=== PATIENT | male | born 1935 | race African-American/Black ===

== ENCOUNTER 2017-09-17 20:56 | Emergency (ER) | payer MEDICARE, OTHER ==
[~2017-09-17] VITALS: Ht 172.7 cm; Wt 74.5 kg
[~2017-09-17 20:56] MED LIST: BRIM15DR2 EACHEYE; CHOL400T15 MT; DILT240T12 PO; DORZ10DR7 EACHEYE; ESCI10TA54 PO; FURO20TA4 PO; LATA2.5D2 EACHEYE; LEVO75TA7 PO; LOVA40TA73 PO; MEMA28CA PO; METO25TA6 PO; PROAIR; TIMO15DR12 EACHEYE
[2017-09-18 00:24] LABS: BASOPHILS % 1.7 % (0.0-2.0); EOSINOPHILS % 2.1 % (0.0-5.0); HEMATOCRIT. 35.7 % (42.0-52.0); HEMOGLOBIN. 10.9 g/dL (14.0-18.0); MEAN CORPUSCULAR HEMOGLOBIN 18.4 pg (28.0-32.0); MEAN CORPUSCULAR VOLUME 60.2 fL (80.0-94.0); MEAN PLATELET VOLUME 9.1 fl (7.4-10.4); MONOCYTES % 12.5 % (2.0-8.0); NEUTROPHILS % 58.7 % (40.0-76.0); PLATELET 185 x1000/uL (130-400); RED BLOOD CELL COUNT 5.93 mill/uL (4.7-6.1); RED CELL DISTRIBUTION WIDTH 20.4 % (11.6-14.6)
[2017-09-18 00:30] LABS: CHLORIDE 106 mEq/L (98-107)
[2017-09-18 00:33] LABS: INR 2.3; PROTHROMBIN TIME 24.3 sec (9.4-11.6)
[2017-09-18 01:56] VITALS: BP 127/74
== END 2017-09-18 01:57 | disposition home or self-care (01) ==
LOC: ER 20:56
DX: R04.0 Epistaxis (principal); T45.515A Adverse effect of anticoagulants, initial encounter; I48.91 Unspecified atrial fibrillation; I11.0 Hypertensive heart disease with heart failure; I50.9 Heart failure, unspecified; H40.9 Unspecified glaucoma; J44.9 Chronic obstructive pulmonary disease, unspecified; Z88.0 Allergy status to penicillin; Z79.01 Long term (current) use of anticoagulants
CPT/HCPCS: 36415; 80048; 85025; 85610; 86850; 86900; 99284

== ENCOUNTER 2018-02-05 10:43 | Emergency (ER) | payer MEDICARE ==
[~2018-02-05] VITALS: Ht 172.7 cm; Wt 88.0 kg
[~2018-02-05 10:43] MED LIST changes: -DORZ10DR7 EACHEYE; +DORZ10DR8 EACHEYE
[2018-02-05 11:37] LABS: EOSINOPHILS % 4.1 % (0.0-5.0); HEMATOCRIT. 37.5 % (42.0-52.0); HEMOGLOBIN. 11.4 g/dL (14.0-18.0); LYMPHOCYTES % 17.7 % (20.0-50.0); MEAN CORPUSCULAR HEMOGLOBIN 19.1 pg (28.0-32.0); MEAN CORPUSCULAR VOLUME 62.7 fL (80.0-94.0); MEAN PLATELET VOLUME 8.9 fl (7.4-10.4); MONOCYTES % 8.5 % (2.0-8.0); NEUTROPHILS % 68.7 % (40.0-76.0); PLATELET 158 x1000/uL (130-400); RED BLOOD CELL COUNT 5.98 mill/uL (4.7-6.1); RED CELL DISTRIBUTION WIDTH 24.5 % (11.6-14.6)
[2018-02-05 11:44] LABS: CHLORIDE 105 mEq/L (98-107)
[2018-02-05 12:28] LABS: PLATELET ESTIMATE NORMAL
[2018-02-05 12:39] LABS: INR 1.2; PARTIAL THROMBOPLASTIN TIME 29.2 sec (23.4-31.0); PROTHROMBIN TIME 12.4 sec (9.4-11.6)
[2018-02-05] MEDS ORDERED: FUROSEMIDE 20MG/2ML VIAL IVP ONE (12:45)
[2018-02-05 13:20] LABS: CLARITY URINE CLEAR (CLEAR); COLOR URINE YELLOW (YELLOW); KETONES URINE NEGATIVE (NEGATIVE); LEUKOCYTE ESTERASE URINE NEGATIVE (NEGATIVE); NITRITE URINE NEGATIVE (NEGATIVE); OCCULT BLOOD URINE NEGATIVE (NEGATIVE); PROTEIN URINE NEGATIVE (NEGATIVE); SPECIFIC GRAVITY URINE 1.005 (1.005-1.030); UROBILINOGEN URINE 0.2 E.U./dL (0.2-1.0)
[2018-02-05 15:00] VITALS: BP 135/90
== END 2018-02-05 15:37 | disposition home or self-care (01) ==
LOC: ER 11:00 → CANBEDREQ 21:58
DX: R09.89 Other specified symptoms and signs involving the circulatory and respiratory systems (principal); I11.0 Hypertensive heart disease with heart failure; I50.9 Heart failure, unspecified; J44.9 Chronic obstructive pulmonary disease, unspecified; H40.9 Unspecified glaucoma; Z88.0 Allergy status to penicillin; Z88.8 Allergy status to other drugs, medicaments and biological substances
CPT/HCPCS: 36415; 71045; 80053; 81003; 83690; 83880; 84484; 85025; 85610; 85730; 93005; 99285

== ENCOUNTER 2018-07-22 22:58 | Inpatient (IN) | payer BC, MEDICARE, OTHER ==
[~2018-07-22] VITALS: Ht 170.2 cm; Wt 74.8 kg
[2018-07-23] MEDS ORDERED: ASPIRIN 81MG TABLET PO ONE (01:45)
[2018-07-23] MEDS ORDERED: NITROGLYCERIN OINT 1GM/INCH UDPKT TD ONE (01:45)
[2018-07-23] MEDS ORDERED: FUROSEMIDE 40MG/4ML VIAL IV ONE (01:45)
[2018-07-23 02:11] LABS: CHLORIDE 104 mEq/L (98-107)
[2018-07-23 02:13] LABS: BASOPHILS % 0.4 % (0.0-2.0); EOSINOPHILS % 0.4 % (0.0-5.0); HEMATOCRIT. 40.8 % (42.0-52.0); HEMOGLOBIN. 12.8 g/dL (14.0-18.0); LYMPHOCYTES % 5.7 % (20.0-50.0); MEAN CORPUSCULAR HEMOGLOBIN 21.8 pg (28.0-32.0); MEAN CORPUSCULAR VOLUME 69.8 fL (80.0-94.0); MEAN PLATELET VOLUME 9.2 fl (7.4-10.4); MONOCYTES % 6.6 % (2.0-8.0); NEUTROPHILS % 86.9 % (40.0-76.0); PLATELET 160 x1000/uL (130-400); RED BLOOD CELL COUNT 5.85 mill/uL (4.7-6.1); RED CELL DISTRIBUTION WIDTH 19.1 % (11.6-14.6)
[2018-07-23 02:17] LABS: INR 2.9; PROTHROMBIN TIME 28.8 sec (9.1-11.1)
[2018-07-23 02:33] LABS: PLATELET ESTIMATE NORMAL
[2018-07-23] MEDS ORDERED: ONDANSETRON HCL 4MG/2ML INJ IV PRN (11:15)
[2018-07-23] MEDS ORDERED: CLONIDINE 0.1MG TABLET PO PRN (11:15)
[2018-07-23] MEDS ORDERED: MAGNESIUM/ALUMINUM HYDROXIDE/SIMETHICONE 30ML UDC PO PRN (11:15)
[2018-07-23] MEDS ORDERED: ACETAMINOPHEN 325MG TABLET PO PRN (11:15)
[2018-07-23] MEDS ORDERED: DILTIAZEM HCL 60MG TABLET PO SCH (12:00)
[2018-07-23 12:50] LABS: T4 FREE 1.12 ng/dL (0.76-1.46)
[2018-07-23 19:45] VITALS: BP 126/83
[2018-07-23 20:49] VITALS: BP 126/83
[2018-07-23] MEDS: METOPROLOL TARTRATE 25MG TABLET PO SCH ×2 (21:00→21:45)
[2018-07-23] MEDS ORDERED: MEMANTINE HCL 5MG TABLET PO SCH (21:00)
[2018-07-23] MEDS: MEMANTINE HCL 5MG TABLET PO SCH (21:44)
[2018-07-23] MEDS: SODIUM CHLORIDE 0.9% INJ 3ML FLUSH IVF SCH (21:45)
[2018-07-23] MEDS: FUROSEMIDE 40MG/4ML VIAL IVP SCH (21:45)
[2018-07-23] MEDS: DORZOLAM/TIMOLOL 2.23/0.68% OPHTH DROPS 10ML BOTHEYE SCH (21:49)
[2018-07-23] MEDS: LATANOPROST 0.005% OPHTH DROPS 2.5ML BOTHEYE SCH (22:19)
[2018-07-23] MEDS: BRIMONIDINE 0.2% OPHTH DROPS 5ML BOTHEYE SCH (22:20)
[2018-07-24] VITALS: BP 108/66
[2018-07-24 04:00] VITALS: BP 122/76
[2018-07-24] MEDS: BRIMONIDINE 0.2% OPHTH DROPS 5ML BOTHEYE SCH ×3 (06:12→21:01)
[2018-07-24] MEDS: SODIUM CHLORIDE 0.9% INJ 3ML FLUSH IVF SCH ×3 (06:12→21:04)
[2018-07-24 06:17] LABS: INR 2.6; PROTHROMBIN TIME 25.5 sec (9.1-11.1)
[2018-07-24] MEDS: LEVOTHYROXINE SODIUM 75MCG TABLET PO SCH (06:29)
[2018-07-24 08:32] VITALS: BP 105/48
[2018-07-24] MEDS ORDERED: FUROSEMIDE 40MG/4ML VIAL IVP SCH (09:00)
[2018-07-24] MEDS: METOPROLOL TARTRATE 25MG TABLET PO SCH ×2 (09:00→21:00)
[2018-07-24] MEDS: BUDESONIDE 0.5MG/2ML NEB HHN SCH ×2 (09:30→21:43)
[2018-07-24] MEDS: IPRATROPIUM/ALBUTEROL 0.5-3(2.5)MG/3ML NEB INH PRN ×2 (09:31→21:44)
[2018-07-24] MEDS: DORZOLAM/TIMOLOL 2.23/0.68% OPHTH DROPS 10ML BOTHEYE SCH ×2 (10:46→21:00)
[2018-07-24] MEDS: MEMANTINE HCL 5MG TABLET PO SCH ×2 (10:52→21:00)
[2018-07-24] MEDS: FUROSEMIDE 40MG/4ML VIAL IVP SCH (10:53)
[2018-07-24] MEDS: CHOLECALCIFEROL (VIT D3) 400 UNIT TABLET PO SCH (10:54)
[2018-07-24 11:51] LABS: CHLORIDE 104 mEq/L (98-107)
[2018-07-24 12:33] VITALS: BP 125/76
[2018-07-24 16:30] VITALS: BP 101/71
[2018-07-24] MEDS ORDERED: WARFARIN SODIUM 2.5MG TABLET PO NR (18:00)
[2018-07-24 20:00] VITALS: BP 94/58
[2018-07-24] MEDS: LATANOPROST 0.005% OPHTH DROPS 2.5ML BOTHEYE SCH (21:01)
[2018-07-25] VITALS: BP 99/60
[2018-07-25] MEDS: IPRATROPIUM/ALBUTEROL 0.5-3(2.5)MG/3ML NEB INH PRN ×2 (01:48→10:21)
[2018-07-25 04:00] VITALS: BP 115/56
[2018-07-25] MEDS: SODIUM CHLORIDE 0.9% INJ 3ML FLUSH IVF SCH ×2 (06:19→13:28)
[2018-07-25] MEDS: BRIMONIDINE 0.2% OPHTH DROPS 5ML BOTHEYE SCH (06:19)
[2018-07-25] MEDS: LEVOTHYROXINE SODIUM 75MCG TABLET PO SCH (06:20)
[2018-07-25 06:31] LABS: BASOPHILS % 0.9 % (0.0-2.0); EOSINOPHILS % 7.1 % (0.0-5.0); HEMATOCRIT. 40.8 % (42.0-52.0); HEMOGLOBIN. 12.7 g/dL (14.0-18.0); LYMPHOCYTES % 11.7 % (20.0-50.0); MEAN CORPUSCULAR HEMOGLOBIN 21.9 pg (28.0-32.0); MEAN PLATELET VOLUME 9.1 fl (7.4-10.4); MONOCYTES % 8.6 % (2.0-8.0); NEUTROPHILS % 71.7 % (40.0-76.0); PLATELET 163 x1000/uL (130-400); RED BLOOD CELL COUNT 5.82 mill/uL (4.7-6.1); RED CELL DISTRIBUTION WIDTH 18.7 % (11.6-14.6)
[2018-07-25 07:12] LABS: INR 1.8; PROTHROMBIN TIME 17.9 sec (9.1-11.1)
[2018-07-25 07:27] LABS: CHLORIDE 103 mEq/L (98-107)
[2018-07-25] MEDS ORDERED: FUROSEMIDE 40MG/4ML VIAL IVP SCH (09:00)
[2018-07-25] MEDS: DORZOLAM/TIMOLOL 2.23/0.68% OPHTH DROPS 10ML BOTHEYE SCH (09:29)
[2018-07-25] MEDS: CHOLECALCIFEROL (VIT D3) 400 UNIT TABLET PO SCH (09:30)
[2018-07-25] MEDS: MEMANTINE HCL 5MG TABLET PO SCH (09:30)
[2018-07-25] MEDS: METOPROLOL TARTRATE 25MG TABLET PO SCH (09:30)
[2018-07-25] MEDS: BUDESONIDE 0.5MG/2ML NEB HHN SCH (10:20)
[2018-07-25 12:00] VITALS: BP 101/64
[2018-07-25 12:44] VITALS: BP 101/64
[2018-07-25] MEDS ORDERED: WARFARIN SODIUM 5MG TABLET PO NR (18:00)
== END 2018-07-25 16:35 | disposition home or self-care (01) | DRG 291 ==
LOC: ER 22:58 → 6WST 07-23 04:50 → EDBEDREQTM 07-23 04:53 → EDBEDREQ 07-23 04:53 → ENRESERV 07-23 18:07
PROVIDERS: ADMIT Internal Medicine; ATTEND Internal Medicine
DX: I11.0 Hypertensive heart disease with heart failure (principal); J96.90 Respiratory failure, unspecified, unspecified whether with hypoxia or hypercapnia; I50.43 Acute on chronic combined systolic (congestive) and diastolic (congestive) heart failure; J44.9 Chronic obstructive pulmonary disease, unspecified; E89.0 Postprocedural hypothyroidism; D50.9 Iron deficiency anemia, unspecified; I48.2 Chronic atrial fibrillation; H40.9 Unspecified glaucoma; I35.0 Nonrheumatic aortic (valve) stenosis; F03.90 Unspecified dementia, unspecified severity, without behavioral disturbance, psychotic disturbance, mood disturbance, and anxiety; Z99.81 Dependence on supplemental oxygen; Z83.3 Family history of diabetes mellitus; Z88.0 Allergy status to penicillin; Z79.899 Other long term (current) drug therapy
CPT/HCPCS: 36415; 71045; 80048; 83735; 83880; 84439; 84443; 84484; 93005; 93306; 96374; 96376; 97162; 99284; 99291; J1940; J7620; J7626

== ENCOUNTER 2019-04-08 18:46 | Emergency (ER) | payer OTHER | END 2019-04-08 21:00 | disposition left against medical advice (07) | LOC: ER 19:42 | DX: Z53.21 Procedure and treatment not carried out due to patient leaving prior to being seen by health care provider (principal) ==

== ENCOUNTER 2019-07-10 10:35 | Emergency (ER) | payer MEDICARE, OTHER ==
[~2019-07-10] VITALS: Ht 172.7 cm; Wt 68.0 kg
[2019-07-10] MEDS ORDERED: APIX5TAB PO (10:47)
[2019-07-10] MEDS ORDERED: SODIUM CHLORIDE 0.9% 1,000 ML IV ONE (11:05)
[2019-07-10 11:56] LABS: BASOPHILS % 0.8 % (0.0-2.0); EOSINOPHILS % 1.3 % (0.0-5.0); HEMATOCRIT. 47.7 % (42.0-52.0); HEMOGLOBIN. 14.9 g/dL (14.0-18.0); LYMPHOCYTES % 8.6 % (20.0-50.0); MEAN CORPUSCULAR HEMOGLOBIN 22.6 pg (28.0-32.0); MEAN CORPUSCULAR VOLUME 72.2 fL (80.0-94.0); MEAN PLATELET VOLUME 9.3 fl (7.4-10.4); MONOCYTES % 10.6 % (2.0-8.0); NEUTROPHILS % 78.7 % (40.0-76.0); PLATELET 133 x1000/uL (130-400); RED BLOOD CELL COUNT 6.61 mill/uL (4.7-6.1); RED CELL DISTRIBUTION WIDTH 16.7 % (11.6-14.6)
[2019-07-10 12:02] LABS: INR 1.1; PROTHROMBIN TIME 11.6 sec (9.6-11.0)
[2019-07-10 12:06] LABS: CHLORIDE 102 mEq/L (98-107)
[2019-07-10 12:49] LABS: CLARITY URINE CLEAR (CLEAR); COLOR URINE YELLOW (YELLOW); KETONES URINE NEGATIVE (NEGATIVE); LEUKOCYTE ESTERASE URINE NEGATIVE (NEGATIVE); NITRITE URINE NEGATIVE (NEGATIVE); OCCULT BLOOD URINE NEGATIVE (NEGATIVE); PROTEIN URINE NEGATIVE (NEGATIVE); SPECIFIC GRAVITY URINE 1.009 (1.005-1.030); UROBILINOGEN URINE 0.2 E.U./dL (0.2-1.0)
[2019-07-10] MEDS ORDERED: ALBUTEROL (0.083%) 2.5MG/3ML NEB HHN ONE (13:45)
[2019-07-10] MEDS ORDERED: FUROSEMIDE 40MG TABLET PO SCH (14:00)
[2019-07-10 17:46] VITALS: BP 127/78
== END 2019-07-10 17:52 | disposition home or self-care (01) ==
LOC: ER 10:35 → CANBEDREQ 14:40 → ER 17:52
DX: R55 Syncope and collapse (principal); G93.49 Other encephalopathy; J44.9 Chronic obstructive pulmonary disease, unspecified; F03.90 Unspecified dementia, unspecified severity, without behavioral disturbance, psychotic disturbance, mood disturbance, and anxiety; I50.9 Heart failure, unspecified; I48.91 Unspecified atrial fibrillation; Z79.01 Long term (current) use of anticoagulants; Z88.0 Allergy status to penicillin
CPT/HCPCS: 36415; 70450; 71045; 80053; 81003; 83605; 84484; 85025; 85610; 87040; 93005; 96360; 99284; J7030

== ENCOUNTER 2020-02-12 14:09 | Emergency (ER) | payer MEDICARE ==
[~2020-02-12] VITALS: Ht 175.3 cm; Wt 84.0 kg
[~2020-02-12 14:09] MED LIST changes: +APIX5TAB PO; -ESCI10TA54 PO; +ESCI10TA61 PO
[2020-02-12] MEDS ORDERED: SODIUM CHLORIDE 0.9% 1,000 ML IV ONE (16:48)
[2020-02-12 17:22] LABS: EOSINOPHILS % 5.2 % (0.0-5.0); HEMOGLOBIN. 13.3 g/dL (14.0-18.0); LYMPHOCYTES % 15.8 % (20.0-50.0); MEAN CORPUSCULAR HEMOGLOBIN 21.4 pg (28.0-32.0); MEAN CORPUSCULAR VOLUME 69.2 fL (80.0-94.0); MEAN PLATELET VOLUME 9.1 fl (7.4-10.4); MONOCYTES % 10.2 % (2.0-8.0); NEUTROPHILS % 67.8 % (40.0-76.0); PLATELET 144 x1000/uL (130-400); RED BLOOD CELL COUNT 6.22 mill/uL (4.7-6.1); RED CELL DISTRIBUTION WIDTH 24.5 % (11.6-14.6)
[2020-02-12 17:29] LABS: CHLORIDE 104 mEq/L (98-107)
[2020-02-12 18:23] LABS: PLATELET ESTIMATE NORMAL
[2020-02-12] MEDS ORDERED: LEVOFLOXACIN 750MG PREMIX 150 ML IV SCH (18:45)
[2020-02-12 19:02] LABS: CLARITY URINE CLEAR (CLEAR); COLOR URINE YELLOW (YELLOW); KETONES URINE NEGATIVE (NEGATIVE); LEUKOCYTE ESTERASE URINE NEGATIVE (NEGATIVE); NITRITE URINE NEGATIVE (NEGATIVE); OCCULT BLOOD URINE NEGATIVE (NEGATIVE); PROTEIN URINE NEGATIVE (NEGATIVE); SPECIFIC GRAVITY URINE 1.013 (1.005-1.030); UROBILINOGEN URINE 0.2 E.U./dL (0.2-1.0)
[2020-02-12 19:10] LABS: D-DIMER 0.27 mg/L FEU (<0.50)
[2020-02-12 21:31] VITALS: BP 145/70
== END 2020-02-12 22:08 | disposition left against medical advice (07) ==
LOC: ER 14:09 → EDBEDREQTM 20:22 → EDBEDREQ 20:22 → CANRESERV 21:52 → ENRESERV 21:52 → ER 22:08 → CANBEDREQ 22:59
DX: Z03.818 Encounter for observation for suspected exposure to other biological agents ruled out (principal); J18.9 Pneumonia, unspecified organism; K59.00 Constipation, unspecified; E86.0 Dehydration; I48.91 Unspecified atrial fibrillation; I50.9 Heart failure, unspecified; F03.90 Unspecified dementia, unspecified severity, without behavioral disturbance, psychotic disturbance, mood disturbance, and anxiety; Z79.01 Long term (current) use of anticoagulants; Z88.0 Allergy status to penicillin
CPT/HCPCS: 36415; 71045; 74176; 80053; 81003; 82728; 83690; 85025; 85379; 85384; 87040; 93005; 96361; 96365; 99285; C9803; J1956; J7030; U0003